=== PATIENT | male | born 1955 | race Caucasian/White ===

== ENCOUNTER 2018-05-24 20:18 | Emergency (ER) | payer OTHER, BC ==
--- NOTE | 2018-05-24 20:48 | ED ---
Abdominal Pain/Male - HPI Summary HPI Summary: Pt is a 62 y/o M presenting to the ED with a chief complaint of RUQ abd pain with a mild onset about 1600. He gets common episodes that are described as stomach spasms, the episodes last for about 8 hours, including pain, gurgling, nothing, and it cycles. The pt reports vomiting toward the end of the attack. He previously had a CT scan and an ultrasound and they found diverticulosis and a fatty liver, which his doctor prescribed oxycodone for. Sometimes after the episodes his BMs are pale. Per the pts girlfriend, he scrunches up and sometimes yells in pain. - History of Current Complaint Chief Complaint: EDAbdPain Stated Complaint: ABD PAIN Time Seen by Provider: 05/24/18 20:33 Hx Obtained From: Patient, Family/Environmental Marketing Representative - girlfriend Onset/Duration: Sudden Onset, Lasting Hours, Still Present Timing: Intermittent, Lasting Hours Severity Initially: Moderate Severity Currently: Moderate Pain Intensity: 7 Pain Scale Used: 0-10 Numeric Location: Discrete At: RUQ Radiates: No Character: Other: - spasms, gurgling Aggravating Factor(s): Nothing Alleviating Factor(s): Nothing Associated Signs And Symptoms: Positive: Vomiting. Negative: Constipation, Urinary Symptoms - Allergies/Home Medications Allergies/Adverse Reactions: Allergies Allergy/AdvReac Type Severity Reaction Status Date / Time No Known Allergies Allergy Verified 05/24/18 20:23 PMH/Surg Hx/FS Hx/Imm Hx Endocrine/Hematology History: Reports: Hx Diabetes - TYPE 2 2008 Cardiovascular History: Reports: Hx Hypertension - ON MEDS Denies: Other Cardiovascular Problems/Disorders GI History: Reports: Hx Gastroesophageal Reflux Disease - OK NOW History: Reports: Hx Kidney Stones - Q 2 YEARS LAST ON E 1 WEEK AGO Sensory History: Reports: Hx Cataracts - LEFT EYE, Hx Contacts or Glasses - GLASSES Denies: Hx Hearing Aid Opthamlomology History: Reports: Hx Cataracts - LEFT EYE, Hx Contacts or Glasses - GLASSES - Surgical History Surgery Procedure, Year, and Place: KIDNEY STONE REMOVAL. [facility] 2012, [facility]. AGE 6 AND 8, [facility], [place], [place]. Hx Anesthesia Reactions: Yes - AGE 6- VIOLENT Infectious Disease History: Yes Infectious Disease History: Denies: Traveled Outside the [place] in Last 30 Days - Social History Alcohol Use: Rare Alcohol Amount: 2 PER MONTH Substance Use Type: Reports: None Smoking Status (MU): Former Smoker Type: Cigarettes Amount Used/How Often: 1/2 PACK A DAY Have You Smoked in the Last Year: No Review of Systems Negative: Fever Positive: Abdominal Pain, Vomiting All Other Systems Reviewed And Are Negative: Yes Physical Exam - Summary Physical Exam Summary: Appearance: Well-appearing, Well-nourished, lying in bed comfortably Skin: Warm, dry, no obvious rash Eyes: sclera anicteric, no conjunctival pallor ENT: mucous membranes moist, pharynx appears normal Neck: Supple, nontender Respiratory: Clear to auscultation, no signs of respiratory distress Cardiovascular: Normal S1, S2. No murmurs. Normal distal pulses in tibial and radial bilaterally. Abdomen: RUQ tenderness w/o peritoneal signs, normal active bowel sounds present Musculoskeletal: Normal, Strength/ROM Intact Neurological: A&Ox3, awake and alert, mentation is normal, speech is fluent and appropriate Psychiatric: affect is normal, does not appear anxious or depressed Triage Information Reviewed: Yes Vital Signs On Initial Exam: Initial Vitals Temp Pulse Resp BP Pulse Ox 98.6 F 100 16 152/85 97 05/24/18 20:18 05/24/18 20:18 05/24/18 20:18 05/24/18 20:18 05/24/18 20:18 Vital Signs Reviewed: Yes Diagnostics - Vital Signs Vital Signs Temp Pulse Resp BP Pulse Ox 05/24/18 20:18 98.6 F 100 16 152/85 97 - Laboratory Lab Statement: Any lab studies that have been ordered have been reviewed, and results considered in the medical decision making process. - EKG 2042 Cardiac Rate: Tachycardia - 105bpm EKG Rhythm: Sinus Tachycardia ST Segment: Non-Specific Ectopy: None Discharge - Sign-Out/Discharge Documenting (check all that apply): Patient Departure - Discharge Plan Condition: Stable Referrals: Andriy ACOSTA,Dawit Rocha [Primary Care Provider] - - Attestation Statements Document Initiated by Scribe: Yes Documenting Scribe: Hortensia Farmer Provider For Whom Scribe is Documenting (Include Credential): Ramirez Galdamez MD. Scribe Attestation: Hortensia Johnston, blacked for Ramirez Galdamez MD. on 05/24/18 at 2054. Status of Scribe Document: Ready
[2018-05-24] MEDS ORDERED: Ondansetron ODT TAB* 4 MG SL ONE (20:52)
[2018-05-24] MEDS ORDERED: Morphine VIAL* 4 MG/ML VIAL (1 ml vial) IV ONE (20:52)
--- NOTE | 2018-05-24 21:05 | ED ---
Abdominal Pain/Male - HPI Summary HPI Summary: Pt is a 62 y/o M presenting to the ED with a chief complaint of RUQ abd pain with a mild onset about 1600. He gets common episodes that are described as stomach spasms, the episodes last for about 8 hours, including pain, gurgling, nothing, and it cycles. The pt reports vomiting toward the end of the attack. He previously had a CT scan and an ultrasound and they found diverticulosis and a fatty liver, which his doctor prescribed oxycodone for. Sometimes after the episodes his BMs are pale. Per the pts girlfriend, he scrunches up and sometimes yells in pain. - History of Current Complaint Chief Complaint: EDAbdPain Stated Complaint: ABD PAIN Time Seen by Provider: 05/24/18 20:33 Hx Obtained From: Patient, Family/Insurance Follow Up Rep - girlfriend Onset/Duration: Sudden Onset, Lasting Hours, Still Present Timing: Intermittent, Lasting Hours Severity Initially: Moderate Severity Currently: Moderate Pain Intensity: 7 Pain Scale Used: 0-10 Numeric Location: Discrete At: RUQ Radiates: No Character: Other: - spasms, gurgling Aggravating Factor(s): Nothing Alleviating Factor(s): Nothing Associated Signs And Symptoms: Positive: Vomiting. Negative: Constipation, Urinary Symptoms - Allergies/Home Medications Allergies/Adverse Reactions: Allergies Allergy/AdvReac Type Severity Reaction Status Date / Time No Known Allergies Allergy Verified 05/24/18 20:23 PMH/Surg Hx/FS Hx/Imm Hx Endocrine/Hematology History: Reports: Hx Diabetes - TYPE 2 2008 Cardiovascular History: Reports: Hx Hypertension - ON MEDS Denies: Other Cardiovascular Problems/Disorders GI History: Reports: Hx Gastroesophageal Reflux Disease - OK NOW History: Reports: Hx Kidney Stones - Q 2 YEARS LAST ON E 1 WEEK AGO Sensory History: Reports: Hx Cataracts - LEFT EYE, Hx Contacts or Glasses - GLASSES Denies: Hx Hearing Aid Opthamlomology History: Reports: Hx Cataracts - LEFT EYE, Hx Contacts or Glasses - GLASSES - Surgical History Surgery Procedure, Year, and Place: KIDNEY STONE REMOVAL. [facility] 2012, [facility]. AGE 6 AND 8, [facility], [place], [place]. Hx Anesthesia Reactions: Yes - AGE 6- VIOLENT Infectious Disease History: Yes Infectious Disease History: Denies: Traveled Outside the [place] in Last 30 Days - Social History Alcohol Use: Rare Alcohol Amount: 2 PER MONTH Substance Use Type: Reports: None Smoking Status (MU): Former Smoker Type: Cigarettes Amount Used/How Often: 1/2 PACK A DAY Have You Smoked in the Last Year: No Review of Systems Negative: Fever Positive: Abdominal Pain, Vomiting All Other Systems Reviewed And Are Negative: Yes Physical Exam - Summary Physical Exam Summary: Appearance: Well-appearing, Well-nourished, lying in bed comfortably Skin: Warm, dry, no obvious rash Eyes: sclera anicteric, no conjunctival pallor ENT: mucous membranes moist, pharynx appears normal Neck: Supple, nontender Respiratory: Clear to auscultation, no signs of respiratory distress Cardiovascular: Normal S1, S2. No murmurs. Normal distal pulses in tibial and radial bilaterally. Abdomen: RUQ tenderness w/o peritoneal signs, normal active bowel sounds present Musculoskeletal: Normal, Strength/ROM Intact Neurological: A&Ox3, awake and alert, mentation is normal, speech is fluent and appropriate Psychiatric: affect is normal, does not appear anxious or depressed Triage Information Reviewed: Yes Vital Signs On Initial Exam: Initial Vitals Temp Pulse Resp BP Pulse Ox 98.6 F 100 16 152/85 97 05/24/18 20:18 05/24/18 20:18 05/24/18 20:18 05/24/18 20:18 05/24/18 20:18 Vital Signs Reviewed: Yes Diagnostics - Vital Signs Vital Signs Temp Pulse Resp BP Pulse Ox 05/24/18 20:18 98.6 F 100 16 152/85 97 - Laboratory Result Diagrams: 05/24/18 21:24 05/24/18 21:24 Lab Statement: Any lab studies that have been ordered have been reviewed, and results considered in the medical decision making process. - EKG 3 Cardiac Rate: Tachycardia - 105bpm EKG Rhythm: Sinus Tachycardia ST Segment: Non-Specific Ectopy: None Re-Evaluation - Re-Evaluation First Eval Re-Evaluation Time: 22:19 Change: Improved Abdominal Pain Fem Course/Dx - Course Course Of Treatment: Pt is a 62 y/o M presenting to the ED with a chief complaint of RUQ abd pain onset 1600. Pt has a hx of episodic abd pain in the same area, lasting about eight hours, intermittent with spasms and gurgling, and vomiting toward the end of it. The pt reports he has had a CT scan and ultrasound in which diverticulosis was found. Bloodwork/UA obtained. An EKG reveals abnml ST and sinus tachycardia at 105bpm. The pt will be discharged with instructions to follow up with his physician, and the pt is agreeable with this plan. - Diagnoses Provider Diagnoses: Acute acalculous cholecystitis Discharge - Sign-Out/Discharge Documenting (check all that apply): Patient Departure - admit - Discharge Plan Condition: Stable Disposition: HOME Patient Education Materials: Acute Abdominal Pain (ED) Referrals: Andriy ACOSTA,Dawit Rocha [Primary Care Provider] - Additional Instructions: Based on your history, I suspect you have a condition called acalculous cholecystitis. Your primary care provider would need to order a specialized test called a CCK-HIDA scan to diagnose or rule this condition out. - Billing Disposition and Condition Condition: STABLE Disposition: Home - Attestation Statements Document Initiated by Sheba: Yes Documenting Scribe: Hortensia Farmer Provider For Whom Sheba is Documenting (Include Credential): Ramirez Galdamez MD. Scribe Attestation: Hortensia Johnston, blacked for Ramirez Galdamez MD. on 05/25/18 at 0217. Scribe Documentation Reviewed: Yes Provider Attestation: The documentation as recorded by the Hortensia sierra accurately reflects the service I personally performed and the decisions made by , Ramirez Galdamez MD. Status of Scribe Document: Viewed
[2018-05-24 21:32] LABS: ABS Basophils 0.1 10^3/ul (0-0.2); ABS Eosinophils 0.1 10^3/ul (0-0.6); ABS Monocytes 0.8 10^3/ul (0-0.8); ABS Neutrophils 14.6 10^3/ul (1.5-7.7); ABS Nucleated RBC 0 10^3/ul; Eosinophil % 0.7 %; Hematocrit 43 % (42-52); Hemoglobin 14.5 g/dl (14.0-18.0); Lymphocyte % 5.9 %; Mean Corpuscular HGB Conc 34 g/dl (31-36); Mean Corpuscular Hemoglobin 28 pg (27-31); Mean Corpuscular Volume 84 fL (80-94); Mean Platelet Volume 8.5 fL (7.4-10.4); Nucleated Red Blood Cells % 0; Platelet Count 207 10^3/ul (150-450); Red Blood Count 5.16 10^6/ul (4.00-5.40); Red Cell Distribution Width 16 % (10.5-15); White Blood Count 16.5 10^3/ul (3.5-10.8)
[2018-05-24 21:41] LABS: Urine Appearance Cloudy; Urine Bilirubin Negative (Negative); Urine Blood Negative (Negative); Urine Color Yellow; Urine Glucose Negative (Negative); Urine Ketones 1+ (Negative); Urine Nitrite Negative (Negative); Urine Protein Negative (Negative); Urine Specific Gravity 1.024 (1.010-1.030); Urine Urobilinogen Negative (Negative)
[2018-05-24 21:50] LABS: Albumin 4.4 g/dL (3.2-5.2); Albumin/Globulin Ratio 1.8 (1-3); BUN/Creatinine Ratio 13.7 (8-20); C Reactive Protein 9.5 mg/L (<8.01); Calcium 9.3 mg/dL (8.6-10.3); EGFR Non-African American 80.3 (>60); Globulin 2.5 g/dL (2-4); Total Bilirubin 0.5 mg/dL (0.2-1.0); Total Protein 6.9 g/dL (6.4-8.9)
[2018-05-24 22:51] VITALS: BP 143/83
== END 2018-05-24 22:50 | disposition home or self-care (01) ==
LOC: ED 20:18
DX: K80.00 Calculus of gallbladder with acute cholecystitis without obstruction (principal); R11.10 Vomiting, unspecified; R10.11 Right upper quadrant pain; Z87.891 Personal history of nicotine dependence
CPT/HCPCS: 36415; 80053; 81003; 83605; 83690; 85025; 86140; 93005; 96374; 99282; A9270-GY; J2270